=== PATIENT | male | born 1960 | race Caucasian/White ===

== ENCOUNTER 2024-07-08 13:43 | Outpatient (CLI) | payer BC ==
[2024-07-08] MEDS ORDERED: iohexol 300mg/ml 100ml inj. ONE (14:07)
== END 2024-07-08 23:59 | disposition home or self-care (01) ==
LOC: RAD 13:43
PROVIDERS: ATTEND Nurse Practitioner Family
DX: R10.31 Right lower quadrant pain (principal); R63.4 Abnormal weight loss; Z80.9 Family history of malignant neoplasm, unspecified
CPT/HCPCS: 74177; Q9967